=== PATIENT | male | born 1965 | race Caucasian/White ===

== ENCOUNTER 2018-10-16 14:15 | Inpatient (IN) | payer OTHER ==
[2018-10-16] MEDS ORDERED: HYDROmorphONE/DILAUDID 2 MG/ML INJ IVP ONE ×2 (14:29→15:23)
[2018-10-16] MEDS ORDERED: NS 1,000 ML IV ONE ×2 (14:30→16:03)
[2018-10-16] MEDS ORDERED: IOPAMIDOL (ISOVUE 370) 100 ML BTL IV ONE (14:49)
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
[2018-10-16] MEDS ORDERED: ONDANSETRON DISINTEGRATING 4 MG TAB PO PRN (17:07)
[2018-10-16] MEDS ORDERED: ACETAMINOPHEN 325 MG TAB PO PRN (17:07)
[2018-10-16] MEDS ORDERED: ONDANSETRON 4 MG/2 ML VIAL IVP PRN (17:07)
[2018-10-16] MEDS ORDERED: KETOROLAC 30 MG/1 ML SDV IVP ONE (17:14)
[2018-10-16] MEDS ORDERED: D5W 1/2 NS 1,000 ML IV SCH (17:15)
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
[2018-10-16] MEDS ORDERED: KETOROLAC 15 MG/1 ML SDV IVP SCH (18:00)
[2018-10-16 18:41] LABS: PLATELET COUNT 193 10^3/uL (150-400)
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
[2018-10-16] MEDS: METHOCARBAMOL 750 MG TAB PO SCH (21:20)
[2018-10-16] MEDS: KETOROLAC 15 MG/1 ML SDV IVP SCH (23:37)
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
[2018-10-17 04:55] LABS: PLATELET COUNT 163 10^3/uL (150-400)
[2018-10-17] MEDS: KETOROLAC 15 MG/1 ML SDV IVP SCH ×4 (06:04→23:30)
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
[2018-10-17] MEDS: METHOCARBAMOL 750 MG TAB PO SCH ×3 (08:56→20:50)
[2018-10-17] MEDS: MAGNESIUM OXIDE 400 MG TAB PO SCH (08:56)
[2018-10-17] MEDS: CETIRIZINE 10 MG TAB PO SCH (08:56)
[2018-10-17] MEDS: OXYCODONE/APAP 5/325 TAB PO PRN ×4 (09:08→20:49)
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
--- NOTE | 2018-10-17 14:44 | PDANEPAE ---
ANE History of Present Illness traumatic clavicle and rib fractures ANE Past Medical History - Cardiovascular History Hx Hypertension: No Hx Arrhythmias: No Hx Chest Pain: No Hx Coronary Artery / Peripheral Vascular Disease: No - Pulmonary History Hx Asthma/Reactive Airway Disease: Yes Hx Oxygen in Use at Home: No Hx Sleep Apnea: No Pulmonary History Comment: mild asthma - Endocrine History Hx Diabetes: No ANE Review of Systems Review of Systems: - Exercise capacity METS (RN): 4 METS ANE Patient History - Allergies Allergies/Adverse Reactions: No Known Allergies Allergy (Unverified 10/16/18 14:19) - Home Medications Home Medications: Cetirizine [ZyrTEC 10 mg (*)] 10 mg PO DAILY 10/16/18 [Last Taken 10/16/18] Magnesium Citrate 250 mg PO DAILY 10/16/18 [Last Taken 10/16/18] - Anes Hx Anes Hx: no prior problems - Smoking Hx Smoking Status: Never smoked - Alcohol Use Alcohol Use: Rarely ANE Labs/Vital Signs - Labs Result Diagrams: 10/17/18 04:22 - Vital Signs Blood Pressure: 117/72 Heart Rate: 52 Respiratory Rate: 21 O2 Sat (%): 95 Height: 167.64 cm Weight: 94.1 kg ANE Physical Exam - Pulmonary Pulmonary: no respiratory distress - Cardiovascular Cardiovascular: regular rate and rhythym - ASA Status ASA Status: II ANE Anesthesia Plan Anesthesia Plan: epidural Regional Anesthesia: continuous NB, interscalene BP NB
[2018-10-17] MEDS ORDERED: ROPIVACAINE HCL 150 MG/30 ML INJ ONE (15:36)
[2018-10-17] MEDS ORDERED: LIDOCAINE 2% 5 ML SDV ONE (15:36)
[2018-10-17] MEDS ORDERED: GLYCOPYRROLATE 0.2 MG/1 ML VIAL IVP ONE (16:30)
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
[2018-10-17] MEDS ORDERED: ROPIVACAINE 0.2% 1,100 MG in PUMP SET 1 EA NB SCH (17:30)
[2018-10-18] MEDS: OXYCODONE/APAP 5/325 TAB PO PRN ×4 (03:38→18:03)
[2018-10-18] MEDS: KETOROLAC 15 MG/1 ML SDV IVP SCH ×3 (05:34→17:57)
[2018-10-18] MEDS ORDERED: BISACODYL 10 MG SUPP PR PRN (07:12)
[2018-10-18] MEDS ORDERED: LACTULOSE 20 GM/30 ML UDCUP PO PRN (07:12)
[2018-10-18] MEDS ORDERED: MAGNESIUM HYDROXIDE 30 ML UDCUP PO PRN (07:12)
[2018-10-18] MEDS: METHOCARBAMOL 750 MG TAB PO SCH ×3 (08:41→21:03)
[2018-10-18] MEDS: MAGNESIUM OXIDE 400 MG TAB PO SCH (08:41)
[2018-10-18] MEDS: CETIRIZINE 10 MG TAB PO SCH (08:41)
[2018-10-18] MEDS: SENNOSIDES/DOCUSATE SODIUM TAB PO SCH ×2 (08:41→21:03)
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
[2018-10-18] MEDS: DIAZEPAM 5 MG TAB PO PRN ×2 (11:20→21:23)
[2018-10-18] MEDS: POLYETHYLENE GLYCOL 3350 17 GM PKT PO PRN (14:44)
--- NOTE | 2018-10-18 14:55 | ASMTCMCOM ---
CM Note CM Note Notes: PT/FILTER WASHER/OT clear pt for home. Pt to have family supervision. Anticipate pt will d/c when medically stable. No CM d/c needs identified. CM available for changes/needs. Date Signed: 10/18/2018 02:54 PM Electronically Signed By:JS Lopez
--- NOTE | 2018-10-18 20:12 | PDPAINCON ---
Pain Management Consultation Patient referred by : Tadeo - Subjective Pain at rest (/10): 3 Pain with activity (/10): 5 Pain is: under control Side effects include: No drowsy, No itchiness Activity: able to ambulate - Objective Technique: continuous peripheral nerve block Site: paravertebral Catheter site: clean, dry, intact, no erythema/edema/exudate Sensory and motor exam: consistent with block Vital signs: stable - Assessment/Plan Assessment/Plan: change infusion rate Additional comments: Initial bolus of ropivicaine 0.5% gave excellent relief. Ropi 0.2% at 8 cc/hr giving some pain control, but missing the more caudad fractures, described as "muscle spasms" by the patient. Increased the rate to 12 cc/hr to attempt to widen the spread, will give nursing the autorization to go to 14 cc/hr. Plan to reevaluate tomorrow. Pt notes clavicle/scapula pain but is not interested in BP NB to address this.
[2018-10-19] MEDS: KETOROLAC 15 MG/1 ML SDV IVP SCH ×3 (00:04→12:13)
[2018-10-19] MEDS: DIAZEPAM 5 MG TAB PO PRN ×2 (00:54→10:44)
[2018-10-19] MEDS: diphenhydrAMINE 25 MG CAP PO PRN ×2 (00:55→21:09)
[2018-10-19] MEDS ORDERED: ROPIVACAINE HCL 150 MG/30 ML INJ ONE (08:32)
[2018-10-19] MEDS: SENNOSIDES/DOCUSATE SODIUM TAB PO SCH ×2 (09:17→21:09)
[2018-10-19] MEDS: MAGNESIUM OXIDE 400 MG TAB PO SCH (09:17)
[2018-10-19] MEDS: CETIRIZINE 10 MG TAB PO SCH (09:17)
[2018-10-19] MEDS: METHOCARBAMOL 750 MG TAB PO SCH (09:18)
--- NOTE | 2018-10-19 09:25 | PDPAINCON ---
Pain Management Consultation Patient referred by : Sanjiv - Subjective Pain at rest (/10): 4 Pain with activity (/10): 8 Pain is: under control Side effects include: No drowsy, No itchiness Activity: out of bed with assistance - Objective Technique: continuous peripheral nerve block Site: paravertebral Continuous infusion: ropivicaine Catheter site: clean, dry, intact, no erythema/edema/exudate Sensory and motor exam: consistent with block Vital signs: stable - Assessment/Plan Assessment/Plan: other Additional comments: Patient continues to struggle with back spasms. Possible these may be positional as extended periods od sitting seem to exacerbate them. Yesterday increased PVNB to 14 cc/hr which gave increased pain relief. Today bolused with ropi 0.5% 20 ml, to give a period of rest. Plan to order additional OnQ ball.
[2018-10-19] MEDS ORDERED: ROPIVACAINE 0.2% 1,100 MG in PUMP SET 1 EA NB SCH (09:30)
--- NOTE | 2018-10-19 11:28 | TRAUMAPN ---
Trauma Progress Note - Problem/Surgery Performed (1) Skiing accident Assessment/Plan: mechanism of injury, helmeted without LOC Qualifiers: Encounter type: initial encounter Qualified Code(s): V00.328A - Other snow- ski accident, initial encounter (2) Clavicle fracture Assessment/Plan: non-op management with sling Qualifiers: Encounter type: initial encounter Clavicle location: lateral end Fracture type: closed Fracture alignment: nondisplaced Laterality: right Qualified Code(s): S42.034A - Nondisplaced fracture of lateral end of right clavicle, initial encounter for closed fracture (3) Ribs, multiple fractures Assessment/Plan: contributing to significant pain-improved with OnQ catheter: paravertebral block small pneumo on initial CT/small pleural effusion on yesterday's CXR Qualifiers: Encounter type: initial encounter Fracture type: closed Laterality: right Qualified Code(s): S22.41XA - Multiple fractures of ribs, right side, initial encounter for closed fracture (4) Scapula fracture Assessment/Plan: contributing to pain, non-op manangement Qualifiers: Encounter type: initial encounter Scapula location: body Fracture type: closed Fracture alignment: displaced Laterality: right Qualified Code(s): S42.111A - Displaced fracture of body of scapula, right shoulder, initial encounter for closed fracture Assessment/Plan: s/p skiing accident with multiple rib fxs, clavicle and scapular fxs all on the right side small hemothorax on yesterday's CXR Plan: repeat CXR change muscle relaxant to orphenadrine citrate (Norflex) as he has taken it before and prefers it case discussed with Dr. Casas who has reordered his Ropivacaine He and his are looking for outpatient pain management followup as they live in [place] Subjective: awake and alert, sitting up in a reclining chair is at bedside Objective: Vital Signs Temp Pulse Resp BP Pulse Ox 36.8 C 80 18 134/78 H 94 10/19/18 07:46 10/19/18 07:46 10/19/18 07:46 10/19/18 07:46 10/19/18 07:46 10/18/18 10/19/18 10/20/18 05:59 05:59 05:59 Intake Total 650 625 Output Total 1050 1100 400 Balance -400 -475 -400 - C-Spine Clearance Cervical Spine Cleared: Yes Physical Exam - Physical Exam General Appearance: alert, mild distress EENT: normal ENT inspection Neck: non-tender Respiratory: lungs clear, normal breath sounds, decreased breath sounds (right) Cardiac/Chest: normal peripheral pulses, regular rate, rhythm Abdomen: normal bowel sounds, non-tender, soft Male Genitalia: deferred Rectal: deferred Skin: warm/dry Extremities: normal range of motion, non-tender Neuro/Psych: alert, normal mood/affect, oriented x 3
[2018-10-19] MEDS: OXYCODONE/APAP 5/325 TAB PO PRN (17:00)
[2018-10-19] MEDS: IBUPROFEN 600 MG TAB PO SCH (21:09)
[2018-10-19] MEDS: ORPHENADRINE CITRATE 100 MG EXT REL TAB PO SCH (21:09)
[2018-10-19] MEDS: POLYETHYLENE GLYCOL 3350 17 GM PKT PO PRN (21:10)
[2018-10-20] MEDS: DIAZEPAM 5 MG TAB PO PRN ×2 (01:00→22:13)
[2018-10-20] MEDS: IBUPROFEN 600 MG TAB PO SCH ×4 (05:10→22:10)
[2018-10-20] MEDS: CETIRIZINE 10 MG TAB PO SCH (09:21)
[2018-10-20] MEDS: SENNOSIDES/DOCUSATE SODIUM TAB PO SCH ×2 (09:21→22:11)
[2018-10-20] MEDS: MAGNESIUM OXIDE 400 MG TAB PO SCH (09:21)
[2018-10-20] MEDS: ORPHENADRINE CITRATE 100 MG EXT REL TAB PO SCH ×2 (09:21→22:10)
[2018-10-20] MEDS: OXYCODONE/APAP 5/325 TAB PO PRN ×3 (09:26→19:34)
--- NOTE | 2018-10-20 14:21 | SOAPPROG ---
SOAP Progress Note Assessment/Plan: Assessment: Plan: Subjective: pain major issue lungs clear neuro intact right arm- in sling. on q pump in place pt having pain from 10 r rib fx, scapula clavicle. may not be ready for discharge today. Objective: Vital Signs Temp Pulse Resp BP Pulse Ox 36.7 C 80 16 122/85 H 92 10/20/18 08:00 10/20/18 08:00 10/20/18 08:00 10/20/18 08:00 10/20/18 08:00 10/19/18 10/20/18 10/21/18 05:59 05:59 05:59 Intake Total 625 1500 Output Total 1100 3700 300 Balance -475 -2200 -300 ICD10 Worksheet Patient Problems: Problems Problem Status Onset Clavicle fracture Acute Ribs, multiple fractures Acute Scapula fracture Acute Skiing accident Acute
--- NOTE | 2018-10-20 15:24 | ASMTCMCOM ---
CM Note CM Note Notes: Spoke with pt and Loly about d/c planning, the plan is home with [facility] PT. Loly is an RN. Pt has a specific [employer] plan, numerous [facility] referrals sent in Allscripts and it appears [facility] can accept. Pt address/phone verified. Pt plans to have follow up care at [facility] orthopedics where he is a current pt and pt PCP is Josias Daugherty. D/c plan of care: Home with [facility] PT Date Signed: 10/20/2018 03:24 PM Electronically Signed By:JS Lopez
--- NOTE | 2018-10-20 15:27 | PDPAINCON ---
Pain Management Consultation Patient referred by : Jacquelin - Subjective Pain at rest (/10): 2 Pain with activity (/10): 5 Pain is: under control Side effects include: No drowsy, No itchiness Activity: able to ambulate - Objective Technique: continuous peripheral nerve block Site: paravertebral Continuous infusion: ropivicaine Catheter site: clean, dry, intact Sensory and motor exam: consistent with block - Assessment/Plan Assessment/Plan: pain well-controlled, continue current mgmt Additional comments: Pt seen and examined, PVNB site c/d/i, no e/e/e. Pain under good control currently. Has had fewer of the "spasms". PVNB infusion currently at 14 ml/hr. Plan to taper over the next few days as he transitions to home. Will continue to follow up by phone.
[2018-10-20] MEDS ORDERED: ROPIVACAINE 0.2% 1,100 MG in PUMP SET 1 EA NB SCH (15:45)
[2018-10-21] MEDS: IBUPROFEN 600 MG TAB PO SCH ×2 (05:49→12:47)
[2018-10-21] MEDS: OXYCODONE/APAP 5/325 TAB PO PRN ×3 (05:51→14:49)
[2018-10-21 07:20] VITALS: BP 128/84
[2018-10-21] MEDS: MAGNESIUM OXIDE 400 MG TAB PO SCH (08:38)
[2018-10-21] MEDS: CETIRIZINE 10 MG TAB PO SCH (08:38)
[2018-10-21] MEDS: SENNOSIDES/DOCUSATE SODIUM TAB PO SCH (08:39)
[2018-10-21] MEDS: ORPHENADRINE CITRATE 100 MG EXT REL TAB PO SCH (08:39)
--- NOTE | 2018-10-21 09:14 | PDPAINCON ---
Pain Management Consultation Patient referred by : Beny - Subjective Pain at rest (/10): 2 Pain with activity (/10): 5 Pain is: under control Side effects include: No drowsy, No itchiness, No nausea Activity: able to ambulate - Objective Technique: continuous peripheral nerve block Site: paravertebral Continuous infusion: ropivicaine Catheter site: clean, dry, intact, no erythema/edema/exudate Sensory and motor exam: consistent with block Vital signs: stable - Assessment/Plan Assessment/Plan: pain well-controlled, continue current mgmt Additional comments: Pt seen and examined. Pain control is good. Discussed plan with the patient, infusion is currently set at 12cc/hr-- discussed how to taper the infusion and then remove the catheter when OnQ is exhausted or Wednesday , whichever is sooner. Pt expressed understanding. Will fu by phone.
--- NOTE | 2018-10-21 09:23 | PDIAF ---
- Diagnosis Diagnosis: blunt chest trauma Code Status: Full Code - Medication Management Discharge Medications: electronically signed and located in the Home Medication List. - Orders Services needed: Home Care, Registered Nurse Home Care Face to Face: I certify that this patient was under my care and that I had the required [id number] encounter meeting the encounter requirements on the discharge day. My findings support the fact that the patient is homebound as defined in Home Care Face to Face Continued: CMS Chapter 7 Medicare Benefits Manual 30.1.1 , The condition of the patient is such that there exists a normal inability to leave home and consequently, leaving home would require a considerable and taxing effort. Diet Recommendation: no restrictions on diet Diet Texture: Regular Texture Diet Additional Instructions: f/u Dr. Timmons - [facility]. allow on-q pump to run to completion then remove - call for any questions (anesthesia pain service). activity as tolerated. sling as needed for comfort. - Follow Up Care Current Providers and Referrals: CLINTON ABREU [Other] - As per Instructions Isac Casas MD [Medical Doctor] -
--- NOTE | 2018-10-21 09:46 | GDS ---
[f rep st] DISCHARGE SUMMARY REASON FOR ADMISSION: Trauma. HOSPITAL COURSE: 53-year-old healthy male sustained a blunt ski trauma. Injuries included multiple right-sided rib fractures (10) with associated scapular and clavicle fractures. He was admitted to the trauma service for pain control. He was seen in consultation by the orthopedic surgical service, who discussed treatment options with a recommendation for sling as needed for discomfort and possible future clavicle ORIF options. An On-Q pump was placed to help with pain control. He was discharged to home on the in improved condition with adequate pain tolerance with the use of his On-Q pump and breakthrough oral analgesics. Home PT will be arranged. He plans to follow up with Dr. Paige at [facility] closer to his home in [place]. He was given prescriptions for Percocet and Valium as needed for discomfort, as well as scheduled meloxicam, Norflex, and Zofran as needed as well. He and his were instructed on On-Q pump removal technique. Local followup instructions were provided if needed. Discharge instructions were explained to the patient and family prior to leaving. /[id number]/MODL MTDD
--- NOTE | 2018-10-21 09:49 | ASMTLACE ---
LACE Length of stay for Answers: 4-6 days current admission Acuity / Level of Answers: Yes Care: Did the patient have an inpatient admission? # of Emergency department Answers: 1-2 visits in the last 6 months Score: 8 Date Signed: 10/21/2018 09:48 AM Electronically Signed By:JS Lopez
--- NOTE | 2018-10-21 09:55 | PDIAF ---
- Diagnosis Diagnosis: blunt chest trauma Code Status: Full Code - Medication Management Discharge Medications: electronically signed and located in the Home Medication List. - Orders Services needed: Home Care, Registered Nurse, Physical Therapy Home Care Face to Face: I certify that this patient was under my care and that I had the required [id number]-ti-ytco encounter meeting the encounter requirements on the discharge day. My findings support the fact that the patient is homebound as defined in Home Care Face to Face Continued: CMS Chapter 7 Medicare Benefits Manual 30.1.1 , The condition of the patient is such that there exists a normal inability to leave home and consequently, leaving home would require a considerable and taxing effort. Diet Recommendation: no restrictions on diet Diet Texture: Regular Texture Diet Additional Instructions: f/u Dr. Shanelle Coronavirtua berlinharis Gama. allow on-q pump to run to completion then remove - call for any questions (anesthesia pain service). activity as tolerated. sling as needed for comfort. - Follow Up Care Current Providers and Referrals: CLINTON ABREU [Other] - As per Instructions Isac Casas MD [Medical Doctor] -
[2018-10-21] MEDS: DIAZEPAM 5 MG TAB PO PRN (12:48)
--- NOTE | 2018-10-21 16:46 | ASMTCMCOM ---
CM Note CM Note Notes: Pt medically stable for d/c home with [facility]. 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 Roberth MORALES updated. Date Signed: 10/21/2018 04:46 PM Electronically Signed By:JS Lopez
--- NOTE | 2018-10-21 16:47 | ASDISCHSUM ---
Discharge Information Plan Status:Home with No Needs Medically Cleared to Leave: Discharge Date:10/21/2018 04:39 PM CM D/C Disposition: ADT D/C Disposition:Home, Routine, Self-Care Projected Discharge Date:10/21/2018 11:00 AM Transportation at D/C: Discharge Delay Reason: Follow-Up Date:10/21/2018 11:00 AM Discharge Slot: Final Diagnosis: Placement Information Referral Type:*Home Health Care Services Referral ID:[id number] Provider Name: Address 1: Phone Number: Address 2: Fax Number: City: Selection Factors: State: Patient Contact Information Contact Name:SANTOS Relationship: Address:[address] Work Phone: [facility]:[place] Alternate Phone: [facility]/Zip Code:[place] [address] Email: Financial Information Financial Class:[employer] Primary Plan Desc:CLARISSA HERNANDEZ [facility] Primary Plan Number:[id number] Secondary Plan Desc: Secondary Plan Number: Assessment Information LACE LACE Length of stay for Answers: 4-6 days current admission Acuity / Level of Answers: Yes Care: Did the patient have an inpatient admission? # of Emergency department Answers: 1-2 visits in the last 6 months Score: 8 Date Signed: 10/21/2018 09:48 AM Electronically Signed By:JS Lopez [facility] CM Progress Note CM Note CM Note Notes: Pt admitted for rib fractures, scapula fracture and clavicular fracture after a one man skiing accident. Pt had epidural placed at the bedside today for pain control and was unavailable when CM attempted to meet. Pt lives in [place] with and will likely discharge independently when pain is controlled. PT eval still pending. CM to follow. D/C Plan: Independent likely pending PT eval Date Signed: 10/17/2018 04:47 PM Electronically Signed By:Cynthia Lincoln [facility] CM Progress Note CM Note CM Note Notes: PT/HATCH BOSS/OT clear pt for home. Pt to have family supervision. Anticipate pt will d/c when medically stable. No CM d/c needs identified. CM available for changes/needs. Date Signed: 10/18/2018 02:54 PM Electronically Signed By:JS Lopez [facility] CM Progress Note CM Note CM Note Notes: Spoke with pt and Loly about d/c planning, the plan is home with [facility] PT. Loly is an RN. Pt has a specific [employer] plan, numerous [facility] referrals sent in Allscripts and it appears [facility] can accept. Pt address/phone verified. Pt plans to have follow up care at [facility] orthoped[facility] where he is a current pt and pt PCP is Josias Daugherty. D/c plan of care: Home with [facility] PT Date Signed: 10/20/2018 03:24 PM Electronically Signed By:JS Lopez [facility] CM Progress Note CM Note CM Note Notes: Pt medically stable for d/c home with [facility]. 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 Date Signed: 10/21/2018 04:46 PM Electronically Signed By:JS Lopez Intervention Information
== END 2018-10-21 16:39 | disposition home or self-care (01) | DRG 184 ==
LOC: F3N 16:43 → OBSVTOIN 10-17 11:30
PROVIDERS: ADMIT Surgery; ATTEND Surgery
PROC: 3E0T3BZ Introduction of Anesthetic Agent into Peripheral Nerves and Plexi, Percutaneous Approach (ICD-10-PCS; principal; 2018-10-18)
DX: S22.5XXA Flail chest, initial encounter for closed fracture (principal); S27.0XXA Traumatic pneumothorax, initial encounter; S42.024A Nondisplaced fracture of shaft of right clavicle, initial encounter for closed fracture; S42.114A Nondisplaced fracture of body of scapula, right shoulder, initial encounter for closed fracture; V00.321A Fall from snow-skis, initial encounter; Y93.23 Activity, snow (alpine) (downhill) skiing, snowboarding, sledding, tobogganing and snow tubing; Y92.838 Other recreation area as the place of occurrence of the external cause; Y99.8 Other external cause status
CPT/HCPCS: 82435-PO; 82565-PO; 82947-PO; 84132-PO; 84295-PO; 84520-PO; 85014-ER; 92523-GN; 96374; 97116-GP; 97162-GP; 97166-GO; 97530-GO; 97530-GP; 97535-GO; A4565; G0378; J1170; J1885; J2405; J2795; Q9967